=== PATIENT | male | born 1975 | race Caucasian/White ===

== ENCOUNTER 2020-07-08 16:28 | Emergency (ER) | payer OTHER ==
[~2020-07-08] VITALS: Ht 177.8 cm; Wt 97.7 kg
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
[2020-07-08 16:53] VITALS: BP 154/78
[2020-07-08 17:05] LABS: AMPHETAMINE/METHAMPHETAMINE NEG (NEG); BARBITURATES NEG (NEG); BENZODIAZEPINES NEG (NEG); CANNABINOIDS NEG (NEG); COCAINE NEG (NEG); METHADONE NEG (NEG); OPIATES NEG (NEG); PHENCYCLIDINE NEG (NEG)
== END 2020-07-08 17:12 | disposition home or self-care (01) ==
LOC: ER 16:28
DX: R52 Pain, unspecified (principal)
CPT/HCPCS: 36415; 80307; 99283